=== PATIENT | male | born 1990 | race Caucasian/White ===

== ENCOUNTER 2023-04-27 03:18 | Emergency (ER) | payer MEDICARE, MEDICAID, SELFPAY ==
--- NOTE | ~2023-04-27 | XR_ITS ---
Portable chest x-ray Comparison: None Clinical History: Seizure Findings: Lungs are clear, without focal consolidation or pleural effusion. Cardiomediastinal silho uette is unremarkable. Bones and soft tissues are unremarkable. Impression: Clear lungs. Reviewed, dictated and finalized at location M. IENT MANAGEMENT SPECIALIST Impression: Clear lungs.
--- NOTE | ~2023-04-27 | CT_ITS ---
Non-contrast Head CT History: Seizure Technique: Axial non-contrast imaging of the brain was performed. Dose reduction technique was used on this scan by utilizing automated exposure control and iterative reconstruction technique. The dose -length product (DLP) was 605.33 mGy-cm. Findings: There is no evidence of intracranial hemorrhage, mass lesion, or acute infarct. Brain par enchyma appears normal. The ventricles and subarachnoid spaces are normal in size. The calvarium ap pears normal. The visualized paranasal sinuses and mastoid air cells are clear. Impression: No significant abnormality seen. Reviewed, dictated and finalized at location . OVEMENT NURSE Impression: No significant abnormality seen.
[2023-04-27 03:20] VITALS: BP 98/64; PULSE 42; RESP 19; O2SAT 92
--- NOTE | 2023-04-27 03:31 | ECG_ITS ---
Measurements Intervals [place] Rate: 53 P: 36 OK: 118 QRS: 71 QRSD: 105 T: 46 QT: 467 QTc: 441 Interpretive Statements SINUS BRADYCARDIA WITH SHORT [place] INTERVAL WITH OCCASIONAL SUPRAVENTRICULAR PREMATURE COMPLEXES VOLTAGE CRITERIA FOR LVH, CONSIDER NORMAL VARIANT [MEETS CRITERIA IN ONE OF: R(aVL), S(V1), R(V5), R(V5/V6)+S(V1)] BORDERLINE eCG NO PREVIOUS ECG AVAILABLE FOR COMPARISON Electronically Signed On 04-27-2023 14:07:36 TECHNICIAN [employer]OLOGICAL HEALTH by Darren Niño M.D.
[2023-04-27 03:57] VITALS: BP 100/60; PULSE 65; RESP 14; O2SAT 99
--- NOTE | 2023-04-27 05:34 | ED.GENADULT ---
HPI - General Adult General Chief complaint: Seizure Stated complaint: seizures Time Seen by Provider: 04/27/23 04:36 History of Present Illness HPI narrative: patient is a 33-year-old gentleman who presents to the emergency department with chief complaint of seizures. 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 The patient family reports that he is not had a lot lot of seizures up until the last 2 weeks where he has had multiple seizures the patient has been started on Keppra and has also been given prescriptions for Diastat the patient on last seizure was around 2:00 p.m. today where he was given Diastat he has not had a seizure since then the patient has been seen in several other emergency departments and they did not have neuro services and today the patient's primary doctor recommended that they come to our facility as we have Neurology Related Data Allergies Allergy/AdvReac Type Severity Reaction Status Date / Time phenobarbital Allergy Unknown Verified 04/27/23 03:43 Review of Systems Review of Systems: A 10 system review of systems was completed on the patient and is negative except for what is stated in the HPI. Nursing and ancillary documentation was reviewed. PMFSH Comments Angelman syndrome seizures Exam Narrative: GENERAL: Well-appearing, well-nourished, and in no acute distress. HEAD: Normocephalic, atraumatic. EYES: PERRLA and EOMI. ENT: Nares clear, no rhinorrhea or epistaxis. Mucous membranes moist. NECK: Supple. CHEST: Clear to auscultation. No respiratory distress. HEART: Regular rate and rhythm. No murmur heard. Normal peripheral pulses. ABDOMEN: Soft, nontender, nondistended, normal active bowel sounds. EXTREMITIES: Normal range of motion. No edema. SKIN: Warm, dry, no rash. NEURO: No focal deficits. Alert at baseline neurological status PSYCH: Normal mood and affect. Course Vital Signs Vital signs: Vital Signs Pulse Rate 42 L 04/27/23 03:20 Respiratory Rate 19 04/27/23 03:20 Blood Pressure 98/64 L 04/27/23 03:20 Pulse Oximetry 92 04/27/23 03:20 Oxygen Delivery Room Air 04/27/23 03:20 Pulse Rate 65 04/27/23 03:57 Respiratory Rate 14 04/27/23 03:57 Blood Pressure 100/60 04/27/23 03:57 Pulse Oximetry 99 04/27/23 03:57 Oxygen Delivery Room Air 04/27/23 03:20 Medical Decision Making MDM Narrative Medical decision making narrative: diverticulitis with seizure disorder, electrolyte abnormality, infection laboratory studies were obtained which were within normal limits. CT head showed no acute abnormality chest x-ray showed no focal infiltrate the case was discussed with Dr. Bone the neurology service the patient will be continued on the Keppra that was started on Sunday and will be instructed to follow-up in the office Vital Signs Vital Signs: Vital Signs Pulse Rate 42 L 04/27/23 03:20 Respiratory Rate 19 04/27/23 03:20 Blood Pressure 98/64 L 04/27/23 03:20 Pulse Oximetry 92 04/27/23 03:20 Oxygen Delivery Room Air 04/27/23 03:20 Pulse Rate 65 04/27/23 03:57 Respiratory Rate 14 04/27/23 03:57 Blood Pressure 100/60 04/27/23 03:57 Pulse Oximetry 99 04/27/23 03:57 Oxygen Delivery Room Air 04/27/23 03:20 Lab Data 04/27/23 05:28 04/27/23 05:28 Labs: Lab Results 04/27/23 Range/Units 05:28 WBC 5.0 (4.5-10.0) K/mm3 RBC 4.05 L (4.6-6.20) M/mm3 Hgb 12.4 L (14.0-18.0) g/dL Hct 39.3 L (42.0-52.0) % MCV 97.0 (80-100) fl MCH 30.6 (26-34) pg MCHC 31.6 L (32-36) g/dl RDW 13.3 (11.5-14.5) % Plt Count 546 H (150-375) k/mm3 MPV 9.9 (7.4-10.4) fl Immature Gran % (Auto) 0.2 (0-0.5) % Neut % (Auto) 36.2 L (45.5-73.1) % Lymph % (Auto) 46.5 H (18.3-44.2) % [place] % (Auto) 9.9 H (2.6-8.5) % Eos % (Auto) 6.4 H (0-4.4) % Baso % (Auto) 0.8 (0.2-1.2) % Lymph # (Auto) 2.34 (0.9-3.2) K/
[2023-04-27 05:40] LABS: Basophils Percent Auto 0.8 % (0.2-1.2); Eosinophils Absolute Auto 0.3 K/mm3 (0-0.3); Eosinophils Percent Auto 6.4 % (0-4.4); Hematocrit 39.3 % (42.0-52.0); Hemoglobin 12.4 g/dL (14.0-18.0); Immature Granulocyte Absolute 0.01 K/mm3 (0.00-0.031); Immature Granulocyte Percent A 0.2 % (0-0.5); Lymphocytes Absolute Auto 2.34 K/mm3 (0.9-3.2); Lymphocytes Percent Auto 46.5 % (18.3-44.2); Mean Corpuscular HGB Conc 31.6 g/dl (32-36); Mean Corpuscular Hemoglobin 30.6 pg (26-34); Mean Platelet Volume 9.9 fl (7.4-10.4); Monocytes Absolute Auto 0.5 K/mm3 (0.1-0.6); Monocytes Percent Auto 9.9 % (2.6-8.5); Neutrophils Absolute Auto 1.8 K/mm3 (1.3-6.7); Neutrophils Percent Auto 36.2 % (45.5-73.1); Platelet Count Result 546 k/mm3 (150-375); Red Blood Count 4.05 M/mm3 (4.6-6.20); Red Cell Distribution Width 13.3 % (11.5-14.5)
--- NOTE | 2023-04-27 05:43 | PC.NURSE ---
Upon attempting straight catheterization to collect and send down urine. Pt began voiding on his own. Straight catheter was removed and pt was able to urinate in a cup. Pt linen and clothing was changed. Pt was repositioned.
[2023-04-27 05:51] LABS: Lactic Acid Reflex 1.2 mmol/L (0.7-2.0)
[2023-04-27 05:54] LABS: Add Urine Microscopic? YES; Appearance Urine Cloudy (Clear); Bacteria Urine None Seen /hpf; Bilirubin Urine Negative (Negative); Blood Urine Negative (Negative); Color Urine Yellow (Yellow); Glucose Urine UA Negative (Negative); Hyaline Casts Urine Present /lpf; Ketones Urine Trace mg/dL (Negative); Leukocyte Esterase Ur Negative LEU/UL (Negative); Mucus Urine Present /lpf; Nitrate Urine Negative (Negative); Protein Urine Negative (Negative); Specific Grav Ur 1.034 (1.001-1.035); Squamous Epithelial Cell Urine None seen /hpf (Few); WBC Urine 0-5 /hpf
[2023-04-27 05:58] LABS: Alanine Aminotransferase 58 U/L (6-50); Alkaline Phosphatase 50 U/L (38-126); Anion Gap 8 mmol/L (8-16); Bilirubin,Total 0.6 mg/dL (0.2-1.3); Blood Urea Nitrogen 27 mg/dL (9-20); Carbon Dioxide 29 mmol/L (22-30); Chloride 105 mmol/L (98-107); Estimated CRCL calculation 154 ml/min; Estimated Glomerular Filt Rate > 60; Glucose 92 mg/dL (65-110); Magnesium 2.2 mg/dL (1.6-2.3); Sodium 142 mmol/L (137-145)
[2023-04-27 06:00] LABS: Potassium 4.5 mmol/L (3.4-5.0)
[2023-04-27 06:01] LABS: Aspartate Amino Transferase 189 U/L (17-59)
[2023-04-27 07:00] VITALS: BP 101/61; PULSE 60; RESP 14; O2SAT 99
== END 2023-04-27 07:33 ==
PROVIDERS: Emergency Provider Emergency Medicine
DX: R56.9 Unspecified convulsions (principal); Z79.899 Other long term (current) drug therapy
CPT/HCPCS: 36415; 70450; 71045; 80053; 81001; 83605; 83735; 85025; 93005; 99284